=== PATIENT | female | born 1975 | race Caucasian/White ===

== ENCOUNTER 2019-10-13 15:36 | Outpatient (CLI) | payer BC, SELFPAY ==
[2019-10-13 16:27] LABS: Hematocrit 34.5 % (37.0-47.0); Hemoglobin 10.8 g/dL (12.0-15.0)
== END 2019-10-13 15:37 | disposition home or self-care (01) ==
LOC: ANHLAB 15:37
PROVIDERS: PCP Family Medicine; Visit Provider Anesthesiology
DX: N92.0 Excessive and frequent menstruation with regular cycle (principal)
CPT/HCPCS: 36415; 85014; 85018

== ENCOUNTER 2019-10-14 00:49 | Outpatient (CLI) | payer BC, SELFPAY ==
[2019-10-14 19:30] LABS: SARS-CoV-2 RNA PCR Negative
== END 2019-10-14 00:50 | disposition home or self-care (01) ==
LOC: ANHCOVIDDT 00:49
PROVIDERS: PCP Family Medicine; Visit Provider Obstetrics & Gynecology
DX: Z01.812 Encounter for preprocedural laboratory examination (principal); Z20.828 Contact with and (suspected) exposure to other viral communicable diseases
CPT/HCPCS: 87635; C9803; U0003

== ENCOUNTER 2019-10-16 01:46 | Day surgery (SDC) | payer BC, SELFPAY ==
[2019-10-12 15:36] VITALS: BMI 20.9
[2019-10-16 10:30] VITALS: BP 104/64; PULSE 74; RESP 16; TEMP 36.7; O2SAT 100
[2019-10-16] MEDS: ACETAMINOPHEN 500 MG TABLET 1000 MG PO (10:50)
[2019-10-16] MEDS: LACTATED RINGERS 1,000 ML 30 ML IV CONT ×2 (10:55→14:45)
--- NOTE | 2019-10-16 11:28 | WPDANESEPPF ---
Anes - Initial Pre Proc Eval Procedure: Operation Date: 10/16/19 12:30 Proposed Procedures p Hysteroscopy, Dilation And Curettage, Yvette Endometrial Ablation - Ramiro Bowser MD Date/Time: 10/16/19 11:28 Surgeon: Ramiro Bowser MD Pre Op Diagnosis: Menorrhagia Patient Data Age: 44 Gender: F Height: 1.6 m Weight: 52 kg Last Vital Signs Temp 36.7 C 10/16/19 10:30 Pulse 74 10/16/19 10:30 Resp 16 10/16/19 10:30 BP 104/64 10/16/19 10:30 Pulse Ox 100 10/16/19 10:30 Allergies Allergy/AdvReac Type Severity Reaction Status Date / Time Penicillins Allergy Hives Verified 10/16/19 11:02 Home Medications Medication Instructions Recorded Confirmed Type ferrous sulfate [iron] 325 mg PO DAILY PRN 10/12/19 10/16/19 History multivitamin 1 tablet PO DAILY 10/12/19 10/16/19 History Patient hx anesthesia problems: none Family hx anesthesia problems: none [facility] Past Medical History Medical History (Updated 10/16/19 @ 08:27 by Sam Polo DO) Anemia Anxiety IBS (irritable bowel syndrome) Migraine PONV (postoperative nausea and vomiting) Sjogrens syndrome Social History Social History Smoking status: Never smoker Spiritual care concerns: No Anes - Eval Final PreProcedure Day of Procedure 10/16/19 11:28 Patient weight: normal Heart: regular rate and rhythm Lungs: clear to auscultation and normal air movement Airway: Mallampati scale class 1 Neurological: alert and oriented Last oral intake: >/= 8 hours ASA classification: III Emergent: no Anesthetic plan: proceed Anesthesia type and monitoring: general GIVS and standard monitoring Informed Consent: The patient's anesthetic plan and its attendant risks and benefits were discussed with the patient/family/POA. Questions were solicited and answers provided to the satisfaction of the patient/family/POA.
--- NOTE | 2019-10-16 12:25 | WPDHPUPDATE1 ---
History and Physical Update Update Date/Time: 10/16/19 12:25 History and Physical has been reviewed, including an updated exam of the patient. There are NO changes in the patient's condition. Risks, benefits, and alternatives have been discussed and questions answered. Patient agrees to proceed with procedure.
--- NOTE | 2019-10-16 13:23 | PM.PROC ---
Procedure Note - Detailed Date of procedure: 10/16/19 Pre-op diagnosis: Menorrhagia Post-op diagnosis: same Procedure performed: Hysteroscopy D&C, endometrial ablation Description of procedure: The patient was taken the operating room. She has prepped and draped in the dorsal lithotomy position. Speculum was placed the vagina. The cervix grasped with a tenaculum. The cervix was injected at 3 and 9:00 a.m. with 1% lidocaine. The hysteroscope was inserted the intrauterine cavity through the cervix. The above findings were noted. The hysteroscope and uterine sound were used to calculate endometrial cavity length. The endometrial cavity length was entered into the device hand piece. The endometrial cavity was curettaged thoroughly with a medium-size curette. All surfaces were curettaged. The sample was sent to pathology. The device was placed in the intrauterine cavity and the array was expanded. The balloon cuff was inflated. The power and safety checks were initiated. Never completed the array was collapsed and the balloon cuff was collapsed. The device was withdrawn. The hysteroscope was inserted back into the intrauterine cavity and well desiccated endometrial cavity was observed. The speculum was removed. The tenaculum was removed. The patient tolerated procedure well. She is take covering stable condition. Anesthesia: MAC Surgeon: Ramiro Bowser MD Estimated blood loss (mL): 15 Drains: No Packing: No Pathology: yes Complications: No immediate complications Condition: stable Disposition: PACU Findings: Normal appearing vulva vagina and cervix., normal-appearing intrauterine cavity.
[2019-10-16 13:31] VITALS: BP 127/75; PULSE 80; RESP 16; TEMP 36.8; O2SAT 98
[2019-10-16] MEDS: ONDANSETRON INJ 4 MG/2 ML VIAL IV PUSH (13:51)
[2019-10-16 14:01] VITALS: BP 108/75; PULSE 78
[2019-10-16] MEDS: SCOPOLAMINE 1.5 MG PATCH TRANSDERM (14:19)
[2019-10-16] MEDS: KETOROLAC 15 MG/ML VIAL (*BKC) IV PUSH (14:19)
[2019-10-16 14:31] VITALS: BP 112/74; PULSE 64
[2019-10-16 15:01] VITALS: BP 109/69; PULSE 56
== END 2019-10-16 15:20 | disposition home or self-care (01) ==
PROVIDERS: PCP Family Medicine; Visit Provider Obstetrics & Gynecology
PROC: 0U5B8ZZ Destruction of Endometrium, Via Natural or Artificial Opening Endoscopic (ICD-10-PCS; CPT 58563; principal; 2019-10-16 12:30)
DX: N92.0 Excessive and frequent menstruation with regular cycle (principal); D64.9 Anemia, unspecified; Z79.899 Other long term (current) drug therapy; Z88.0 Allergy status to penicillin
CPT/HCPCS: 58563; A9270; J1885; J2250; J2405; J2704; J3010; J7030; J7120

== ENCOUNTER 2023-02-01 14:03 | Emergency (ER) | payer BC, SELFPAY ==
[2023-02-01 14:19] VITALS: BP 128/71; PULSE 80; RESP 16; TEMP 36.6; O2SAT 99
--- NOTE | 2023-02-01 14:38 | ED.GENADULT ---
HPI - General Adult General Chief complaint: Urogenital-Female Stated complaint: Uti symptoms Source: patient, RN notes reviewed and old records reviewed Mode of arrival: ambulatory Limitations: no limitations History of Present Illness HPI narrative: 47-year-old female presents to [facility] with complaints burning with urination that started 2-3 days ago. Patient denies frequency, urgency, abdominal pain, back pain. MD complaint: burning with u Onset (ago): day(s) (2-3) Related Data Allergies Allergy/AdvReac Type Severity Reaction Status Date / Time Penicillins Allergy Hives Verified 02/01/23 14:14 Review of Systems Constitutional: Constitutional: Reports no additional constitutional complaints Eyes: Eyes: Reports no additional eye complaints ENT: Reports system reviewed and no additional complaints, except as documented Cardiovascular: Cardiovascular: Reports no additional cardiovascular complaints Respiratory: Respiratory: Reports no additional respiratory complaints Gastrointestinal: Gastrointestinal: Reports no additional gastrointestinal complaints, Denies abdominal pain, Denies bloating, Denies diarrhea, Denies loose stools, Denies nausea and Denies vomiting Genitourinary: Genitourinary: Reports dysuria, Denies pelvic pain, Denies flank pain, Denies urinary incontinence, Denies urinary hesitancy, Denies urinary urgency and Denies vaginal discharge Neurologic: Reports system reviewed and no additional complaints, except as documented [facility] Past Medical History Medical History (Updated 02/01/23 @ 14:43 by Debbie Agrawal APRN) Anemia Anxiety IBS (irritable bowel syndrome) Migraine PONV (postoperative nausea and vomiting) Sjogrens syndrome Social History Social History Smoking status: Never smoker Spiritual care concerns: No Comments At the time of my signature, I reviewed and agree with the nursing past medical, surgical, social, and family history. There is no relevant family history pertinent to the patient complaint. Exam Const: General: cooperative, healthy appearing, no acute distress and well nourished Nutritional Appearance: well nourished Orientation/consciousness: patient oriented x3 Limitations: no limitations HENMT: Head: normal to inspection and normocephalic Ears: external ears normal, TM's normal bilaterally, mastoids normal and Abnormal EAC present Face/Nose/Sinus: normal facial exam Face and sinus: normal facial exam Mouth: Yes Normal oral and palatal mucosa present, Yes oropharynx normal and Yes moist mucous membranes Throat: posterior oropharynx normal, tonsils normal, uvula midline and no uvular edema Eyes: General: appearance normal, both eyes and all related structures Sclera: sclerae normal Pupils: Equal, round and reactive pupils present Resp: Effort & Inspection: normal respiratory effort, able to speak in complete sentences, no audible wheezes, no cough, no respiratory distress and no retractions Cardio: Rate: regular rate GI: Inspection: normal to inspection and non-distended GI Palp: No abdominal tenderness, Yes Soft to palpation, No Tenderness to palpation present (GI) and No Guarding due to palpation present (GI) : General: Yes no CVA tenderness Skin: General skin exam: normal color and no rashes or lesions noted Neuro: General: patient oriented x3 Cranial nerves: Yes Equal, round and reactive pupils present Psych: Appearance: grossly normal Course Course Emergency Course: Some parts of this dictation were generated by voice recognition software and may contain typographical and/or grammatical inaccuracies. Level of Care: Express Care Visit Vital Signs Vital signs: Vital Signs Temperature 98 F 02/01/23 14:19 Pulse Rate 80 02/01/23 14:19 Respiratory Rate 16 02/01/23 14:19 Blood Pressure 128/71 02/01/23 14:19 Pulse Oximetry 99 02/01/23 14:19 Oxygen Delivery Room Air 02/01/23 14:19 Temperature 98 F 02/01/23
== END 2023-02-01 14:50 | disposition home or self-care (01) ==
PROVIDERS: Emergency Provider Registered Nurse; PCP Family Medicine
DX: N30.01 Acute cystitis with hematuria (principal); M35.00 Sjogren syndrome, unspecified
CPT/HCPCS: 81003; 87086; 99213; G0463

== ENCOUNTER 2024-10-15 15:28 | Emergency (ER) | payer BC, SELFPAY ==
--- NOTE | ~2024-10-15 | CT_ITS ---
EXAMINATION: CT abdomen pelvis wo con DATE: 10/15/2024 17:15 INDICATION: Left upper quadrant pain TECHNIQUE: Computed tomography (CT) of the abdomen and pelvis was performed without intravenous contrast. The dose-length product was 186.66 mGy-cm. Automated exposure control and iterative reconstruction technique were employed. COMPARISON: None. FINDINGS: Lung bases unremarkable. Heart size normal. No significant pleural or pericardial effusion. The liver, spleen, pancreas, adrenal glands and kidneys are unremarkable. Gallbladder is present. Nonobstructive bowel gas pattern. No abnormal pelvic masses or fluid collections. No acute osseous abnormality. IMPRESSION: 1. No acute abdominal abnormality. Reviewed, dictated and finalized at location O.
--- OUTSIDE RECORDS SUMMARY | 2024-10-15 15:33 | XMS_ITS | Clinical Summary ---
Author Organization [facility] [address] Address [address] [place] [address] Phone Care Team Providers Care Sand Buffer Name Role Phone Kimberley Bullard MD Unavailable Tobias Nam DNP Primary Care Provider Unavailab le Allergies Active Allergy Reactions Criticality Noted Date Comments Penicillins Hives,Rash Reaction: Hives, , , Reaction: Rash, , Medications multivit-min/iron /folic acid/K (ADULTS MULTIVITAMIN ORAL) Take 1 tablet by mouth every morning Active albuterol HFA (Ventolin HFA) 90 mcg/actuation inhalerIndication s:SOB (shortness of breath) Inhale 2 puffs every 4 (four) hours as needed for wheezing or shortness of breath 8 g 5 1 Active diphenhydrAMINE (BENADRYL) 25 mg capsuleIndication s:Allergies Take 25 mg by mouth nightly Active ibuprofen (ADVIL,MOTRIN) 200 mg tab/capIndication s:Pain Take 3 tablet/capsule (600 mg total) by mouth every 6 (six) hours as needed for pain 30 tablet 1 1 Active acetaminophen (TYLENOL) 500 mg tablet Take 2 tablets (1,000 mg total) by mouth every 6 (six) hours as needed for pain 60 tablet 1 1 Active ALPRAZolam (XANAX) 0.25 mg tabletIndications :Anxiety about health Take 1 tablet (0.25 mg total) by mouth daily as needed for anxiety 30 tablet Active MAGNESIUM CHLORIDE ORAL Take by mouth Ac tive Active Problems Problem Noted Date Diagnosed Date PVC's (premature ventricular contractions) 02/02 NSVT (nonsustained ventricular tachycardia) 01/22 Urinary retention with incomplete bladder emptyi ng 12/02/2020 Abnormal uterine bleeding (AUB) 09/16/2020 Overview (09/16/2020): Added automatically from request for surgery [id number] Pelvic and perineal pain 09/16/2020 Overview (09/16/2020): Added automatically from request for surgery [id number] 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 Assessment & Plan (04/05/2017 10:20 AM RECEPTIONIST SECRETARY): Will repeat AVISE testing. Assessment & Plan (08/19/2016 4:26 PM CDT): See #1. Undifferentiated inflammatory arthritis 08/20/19 17 Assessment & Plan (10/18/2017 10:10 AM CDT): Patient disease activity is low. Patient is currently not on any medication. She denies any joint pain, swelling , rashes. She has felt much better since she has changed her diet. Will get AVISE testing today. She is to RTC in one year, sooner if worsening symptoms. Assessment & Plan (04/05/2017 10:19 AM RECEPTIONIST SECRETARY): Patient disease activity is low. Her u/s is actually improved from her previous one. Will continue to observe this patient at this time. She is feeling much better after changing her diet. Will repeat AVISE testing, she is going to stop by the [facility] soon. Assessment & Plan (11/20/2016 10:19 AM CDT): Positive ZORAIDA and SSA. Will repeat AVISE testing and U/S of the hand at the end of this year. Will have her come back for a f/u near the end of February. Patient is doing well with diet changes and does not want to go on any medication at this time. Assessment & Plan (08/19/2016 4:26 PM CDT): With positive ZORAIDA and SSA. Suspect undifferentiated connective tissue disease. Advised patient to start HCQ. Multiple joint pain 08/03/2016 Assessment & Plan (08/03/2016 1:53 PM CDT): With positive SSA and elevated sed rate. Suspect CTD, will evaluate for thyroidits as she has unexplained rashes. Patient will undergo further evaluation with labs, xrays and u/s. Will have patient return in two weeks to go over testing and discuss treatment plan at that time. Sjogren's syndrome 08/03/2016 Assessment & Plan (04/05/2017 10:20 AM RECEPTIONIST SECRETARY): Minimal complaints of dry eyes and dry mouth. Assessment & Plan (11/20/2016 10:21 AM CDT): See #1. Assessment & Plan (08/19/2016 4:23 PM CDT): Positive ZORAIDA and SSA. U/S with mild-moderate synovitis. No power doppler. Recommended patient to take HCQ. Discussed SE of this medication with the patient. She is going to go home and think about this medication and Se. Patient seen with Dr. Bullard. Assessment & Plan (08/03/2016 1:53 PM CDT): Positive SSA on initial workup through PMD. Hematuria 08/03/2016 Assessment & Plan (08/19/2016 4:27 PM CDT): Longstanding hx of hematuria. Assessment & Plan (08/03/2016 1:53 PM CDT): Chronic hx of hematuria with u/s and cytology every year. 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/27/2018 Connective tissue disorder 07/01/2016 0 05/27/2018 Influenza with respiratory m anifestation other than pneumonia 01/15/2014 05/27/2018 Overview (05/30/2016): Influenza with respiratory manifestation other than pneumonia Microscopic hematuria 11/10/20132018 Immunizations Immunization Administration Dates Next Due Influenza, Quadrivalent, Milagros l Culture-based MDCK, Preservative Free, Antibiotic Free, Intramuscular 12/14/2017 Influenza, Quadrivalent, Split, Intramuscular ,12/25/2016 Influenza, Quadrivalent, Spl it, Preservative Free, Intramuscular 12/30/2020,12/13/2013 Influenza, Unspecified 12/30/2020 Y[employer]ing SARS-CoV-2 Monovalent Vaccination (12+ Yrs) PURPLE 02/11/2021 Surgical History Surgery Date Site/Laterality Comments OTHER SURGICAL HISTORY 02/23/1992 - 02/21/1993 : OTHER SURGICAL HISTORY 02/22/2006 - 02/21/2007 : ABLATION 202 LAPAROSCOPIC TOTAL HYSTERECTOMY 10/23/2020 - 11/21/2020 with BS HYSTEROSCOPY 09/22/2020 - 10/22/2020 HYSTERECTOMY 02/23/2020 - 02/21/2021 Medical History Medical History Date Comments 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 prostate Heart attack Maternal Grandfather Jesse Cuco Diabetes Maternal Grandmother Augustina Cuco Diab etes mellitus; Other Mother Alive and well; Breast cancer Mother's Brother Cancer Paternal Grandfather Hosea Melara Sr. ALS Paternal Grandmother No Known Problems Son Anesthesia problems Neg Hx Relation Name Status Comments Brother 1 Alive Brother 2 Alive Brother 3 Alive Brother 4 Alive Daughter Alive Father Hosea Melara Jr. Maternal Grandfather Jesse [place] Maternal Grandmother Augustina Cuco Mother Alive Mother's Brother Paternal Grandfather Hosea Melara Sr. Paternal Grandmother Son Alive Social History Tobacco Use Types Packs/Day Years Used Date Smoking Tobacco: Never Smokeless Tobacco: Never Tobacco Cessation:Counseling Given: Not Answered Alcohol Use Standard Drinks/Week Comments No 0 (1 standard drink = 0.6 oz pur e alcohol) AUDIT-C Answer Date Recorded Q1: How often do you have a drink containing alc ohol? Monthly or less 12/06/2020 Q2: How many drinks containi ng alcohol do you have on a typical day when you are drinking? 1 or 2 12/06/2020 Q3: How often do you have si x or more drinks on one occasion? Never 12/06/2020 PHQ-2 Answer Date Recorded PHQ-2 Total Score (If total score is 3 or more points, staff should administer the PHQ-9) 0 04/14/2021 Comments No Sex and Gender Information Value Date Recorded Sex Assigned at Not on file Legal Sex Female 11:54 PM RECEPTIONIST SECRETARY Gender Identity Female 08/21/2020 8:43 PM CDT Sexual Orientation Straight 08/21/2020 8: 43 PM CDT Obstetrics History Para Term AB IAB SAB Ectopic Multiple Livin g Live Births 4 2 2 2 2 2 Date Outcome GA Total Labor Labor/2nd/3rd Weight Sex Type Anes PTL Bella A1 A5 Name Clin 1993 AB 1995 AB 2002 Term F Vag-S pont Living 2006 Term M Vag-S pont Living Last Filed Vital Signs Vital Sign Reading Time Taken Comments Blood Pressure 110/62 02/02/2022 3:49 PM RECEPTIONIST SECRETARY Pulse 47 02/02/2022 3:49 PM RECEPTIONIST SECRETARY Temperature 36.5 C (97.7 F) 07/23/2021 3:01 PM CDT Respiratory Rate 18 12/04/2020 9:00 AM CDT Oxygen Saturation 98% 02/02/2022 3:49 PM RECEPTIONIST SECRETARY Inhaled Oxygen Concentration - - Weight 57.2 kg (126 lb) 07/23/2021 3:01 PM CDT Height 160 cm (5' 2.99) 07/23/2021 3:01 PM CDT Body Mass Index 22.33 07/23/2021 3:01 PM CDT Plan of Treatment Health Maintenance Due Date Last Done Comments Colon Cancer Screening-Colonoscopy 1977 Hepatitis C Screening 1977 DTaP/Tdap/Td Vaccine (1 - Tdap) 02/16/1988 Hepatitis B Screening 1995 Regular Well Visit/Exam 18-64 1995 Depression Screening 04/14/2022 04/14/2021, 12/06/2020, 05/27/2018 Covid-19 Vaccine ( season) 2023 03/04/2021, 02/11/2021 Influenza Vaccine (#1) 2024 , 12/30/2020, 12/21/2017, Additional history exists Breast Cancer Screening-Mammogram 02/10/2025 02/11/2024, 08/20/2022, 01/09/2021, Additional history exists Pneumococcal vaccine <65 Aged Out No longer eligible based on patient's age to complete this topic Procedures Procedure Name Priority Date/Time Associated Diagnosis Comments SCREENING MAMMOGRAM BILATERAL W CAITLYN Schedule Routine, Read Routine (OP Routine) 02/11/2024 3:30 PM RECEPTIONIST SECRETARY Screening mammogram, encounter for from Last 3 Months or Most Recently Relevant to Health Maintenance Results * Screening Mammogram Bilateral W Caitlyn (02/11/2024 3:30 PM RECEPTIONIST SECRETARY) Anatomical Region Laterality Modality Breast Bilateral Mammography Impressions 02/11/2024 3:44 PM RECEPTIONIST SECRETARY BI-RADS ATLAS category (overall): 1 - Negative There is no mammographic evidence of malignancy. A 1 year screening mammogram is recommended. The patient has been or will be contacted. We recommend annual screening mammography for women at average risk of breast cancer beginning at age 40, based on guidelines of the [employer] (ACR Practice Parameter for the Performance of Screening and Diagnostic Mammography) and [employer]. For women with and elevated risk of breast cancer, please refer to the ACR Practice Parameter for specific screening recommendations. The patient will be entered into a reminder system with a target due date of 1 year for her next screening exam. Narrative 02/11/2024 3:44 PM RECEPTIONIST SECRETARY Screening Mammogram Bilateral W Caitlyn: 02/11/24 The study was acquired using full field digital technology and interpreted from soft copy. 2D digital mammographic views, as well as 3D digital tomosynthesis were performed in the CC and MLO projections. CLINICAL: Screening mammogram, encounter for No relevant medical history has been documented for this patient. History of breast cancer in Mother's Brother. COMPARISONS: 08/20/2022 Screening Mammogram Bilateral W Caitlyn 01/09/2021 Screening Mammogram Bilateral W Caitlyn 12/08/2019 Screening Mammogram Bilateral W Caitlyn 11/18/2018 Screening Mammogram Bilateral W Caitlyn 08/24/2017 Diagnostic Mammogram Left W Caitlyn 08/18/2017 Screening Mammogram 2D Bilateral BREAST TISSUE: The breasts are extremely dense, which lowers the sensitivity of mammography. FINDINGS: There is no new suspicious finding in either breast on mammogram. us Self Screening Mammogram IMG MAMMO PROCEDURES Fi nal Result from Last 3 Months or Most Recently Relevant to Health Maintenance Insurance [employer] ACCESS CHOICE [facility] Address: [facility] [id number] [place] [address] ANTHEM ACCESS CHOICE ANTHEM ACCESS CHOICE ANTHEM ACCESS CHOICE Advance Directives For more information, please contact: [phone] * Full Code (Latest Code Status on File) Date Activated Date Inactivated Comments 12/02/2020 11:32 PM 12/04/2020 6:05 PM Care Teams Sand Buffer Relationship Specialty Start Date End Date Tobias Nam DNP PCP - General 12/25/23 [place] [id number] [facility] [address] [place] [address] Rheumatology 11/24/16
[2024-10-15 16:00] VITALS: BP 124/86; PULSE 77; RESP 20; TEMP 36.5; O2SAT 97
--- NOTE | 2024-10-15 16:00 | ED_ITS ---
HPI - Abdominal Pain General Chief Complaint: Abdominal Pain Stated Complaint: left side abdominal pain Time Seen by Provider: 10/15/24 16:00 Source: patient Mode of arrival: ambulatory Limitations: no limitations History of Present Illness HPI narrative: Patient is a 49-year-old female with a left lower ribcage pain laterally. No definite injury but patient is prone to events. No nausea vomiting or diarrhea. No chest pain or shortness of breath. MD elicited complaint: other ( Left lower thorax at the lower ribs cause pain and point tenderness today) Pertinent past history: none Onset (ago): day(s) ( 1) Pain Consistency: constant Location: chest ( left lower thorax mid axillary line) Severity: mild Pain scale (0-10): 3 Quality: aching Radiation: none Migration to: no migration Exacerbating factors: movement and other ( palpation) Relieving factors: rest Context: confirms other ( patient having left lower thorax mid axillary line pain to palpation and breathing /coughing) Associated symptoms: denies other symptoms Treatments prior to arrival: NSAIDs Related Data Patient : No Allergies Allergy/AdvReac Type Severity Reaction Status Date / Time Penicillins Allergy Hives Verified 10/15/24 16:31 Review of Systems 2 Review of Systems: All systems reviewed & are unremarkable except as noted in HPI and below Constitutional: Constitutional: Reports no additional constitutional complaints Eyes: Eyes: Reports no additional eye complaints ENT: Reports system reviewed and no additional complaints, except as documented Cardiovascular: Cardiovascular: Reports no additional cardiovascular complaints Respiratory: Respiratory: Reports no additional respiratory complaints Gastrointestinal: Gastrointestinal: Reports no additional gastrointestinal complaints Genitourinary: Genitourinary: Reports no additional female genitourinary complaints Musculoskeletal: Musculoskeletal: Reports no additional musculoskeletal complaints Integumentary/Breasts: Skin/Breast: Reports system reviewed and no additional complaints, except as docu Neurologic: Reports system reviewed and no additional complaints, except as documented Psychiatric: Psychiatric: Reports no additional psychiatric complaints Endocrine: Endocrine: Reports no additional endocrine complaints Hematologic/Lymphatic: Hematologic/Lymphatic: Reports no additional hematologic/lymphatic complaints Allergic/Immunologic: Allergic/Immunologic: Reports no additional allergic/immunologic complaints PMFSH Past Medical History Medical History PONV (postoperative nausea and vomiting) Anxiety Sjogrens syndrome Anemia IBS (irritable bowel syndrome) Migraine Social History Social History Smoking status: Never smoker Spiritual care concerns: No Exam 2 Const: General: healthy appearing and no acute distress Nutritional Appearance: well nourished Orientation/consciousness: patient oriented x3 HENMT: Head: normal to inspection Ears: external ears normal F bipin/Nose/Sinus: Normal external nose present Eyes: Conjunctivae: conjunctivae normal Pupils: Equal, round and reactive pupils present EOM: EOMs intact bilaterally Neck: Neck: normal visual inspection Chest: Chest palpation & inspection: normal inspection of the chest Resp: Effort & Inspection: normal respiratory effort and not labored A uscultation: clear to auscultation bilaterally and no crackles Cardio: Rate: regular rate Rhythm: regular rhythm Heart sounds: no murmurs GI: Inspection: non-distended GI Palp: Yes Soft to palpation, No Tenderness to palpation present (GI) and Yes Guarding due to palpation present (GI) A uscultation: normal bowel sounds : General: Yes bladder normal to palpation Back/Spine/Pelvis: Back: No no CVA tenderness and CVA tenderness ( left lower thorax at the lowest ribs mid axillary line) Skin: General skin exam: normal color Rashes: no rashes Wounds: no wounds Neuro: General: patient oriented x3, moves all extremities and no meningeal signs Cranial nerves: Yes Nystagmus not present Speech: normal speech Extrem: General: normal to inspection Psych: Mental Status: mental status grossly normal Affect: normal affect Attitude: cooperative Course Vital Signs Vital signs: Vital Signs Temperature 36.5 C 10/15/24 16:00 Pulse Rate 77 10/15/24 16:00 Respiratory Rate 20 10/15/24 16:00 Blood Pressure 124/86 10/15/24 16:00 Pulse Oximetry 97 10/15/24 16:00 Oxygen Delivery Room Air 10/15/24 16:00 Temperature 36.5 C 10/15/24 16:00 Pulse Rate 78 10/15/24 16:55 Respiratory Rate 18 10/15/24 16:55 Blood Pressure 116/70 10/15/24 16:55 Pulse Oximetry 97 10/15/24 16:55 Oxygen Delivery Room Air 10/15/24 16:55 MDM - Abdominal Pain MDM Narrative Medical decision making narrative: patient is a 49-year-old female with left thorax mid axillary line pain. No injury. Patient has chronic blood in her urine for many years. Labs. CT scan. UA. Lab Data Attestation: I reviewed the patient's lab results. 10/15/24 17:01 10/15/24 17:01 Labs: Lab Results 10/15/24 10/15/24 Range/Units 15:56 17:01 WBC 9.7 (4.8-10.8) K/mm3 RBC 4.72 (4.20-5.40) M/mm3 Hgb 14.2 (12.0-15.0) g/dL Hct 42.8 (35.0-49.0) % MCV 90.7 (78.0-102.0) fL MCH 30.1 (27.0-31.0) pg MCHC 33.2 (32-36) g/dL RDW 12.4 (11.6-14.4) % Plt Count 293 (150-420) K/mm3 MPV 9.3 (9.2-11.8) fl Immature Gran % (Auto) 0.3 H (0.0-0.0) % Neut % (Auto) 78.1 H (50.0-70.0) % Lymph % (Auto) 16.7 L (18.0-42.0) % [place] % (Auto) 4.2 (2.0-11.0) % Eos % (Auto) 0.4 L (1.0-6.0) % Baso % (Auto) 0.3 (0.0-1.0) % Lymph # (Auto) 1.63 (1.10-4.50) K/mm3 [place] # (Auto) 0.41 (0.10-0.90) K/mm3 Eos # (Auto) 0.04 (0.02-0.50) K/mm3 Baso # (Auto) 0.03 (0.00-0.10) K/mm3 Abs Immat Gran (auto) 0.03 H (0.00-0.00) K/mm3 Absolute Neuts (auto) 7.60 H (1.70-7.20) K/mm3 Absolute Nucleated RBC 0.00 (0.00-0.00) K/mm3 Nucleated RBC % 0.0 (0-0.0) % PT 10.3 (9.50-12.1) Seconds INR 0.9 APTT 28.3 (23.9-30.70) Sec Sodium 140 (137-145) mmol/L Potassium 4.0 (3.4-5.0) mmol/L Chloride 104 (98-107) mmol/L Carbon Dioxide 27 (22-30) mmol/L Anion Gap 9 (4-12) mmol/L BUN 10 (7-17) mg/dL Creatinine 0.93 (0.7-1.0) mg/dL Estim Creat Clear Calc 55 ml/min Estimated GFR > 60 (59 - ) Glucose 104 (65-110) mg/dL Calculated Osmolality 289 (285-295) mOsm/kg Calcium 9.7 (8.4-10.2) mg/dL Total Bilirubin 0.6 (0.2-1.3) mg/dL AST 23 (14-36) U/L ALT 13 (6-35) U/L Alkaline Phosphatase 58 (38-126) U/L Total Protein 7.5 (6.3-8.2) g/dL Albumin 4.6 (3.5-5.1) g/dL Urine Color Light yellow (Yellow) Urine Appearance Clear (Clear) Urine pH 6.0 (5.0-8.0) Ur Specific [place] 1.020 (1.010-1.020) Urine Protein Negative (Negative) Urine Glucose (UA) Negative (Negative) Urine Ketones 1+ H (Negative) Ur Blood (Man) 2+ H (Negative) Urine Nitrate Negative (Negative) Urine Bilirubin Negative (Negative) Urine Urobilinogen 0.2 (0.2-1.0) mg/dL Leukocyte Esterase Rfl Negative (Negative) TAMANNA/UL Urine RBC 11-20 H (0-2) /hpf Urine WBC None seen (0-3) /hpf Ur Squamous Epith Cells Moderate H (Few) /hpf Urine Bacteria 1+ H (None) /hpf Imaging Data Attestation: I personally reviewed and interpreted this imaging study as follows: Radiologist's impression: ITS Impressions Abdomen/Pelvis CT 10/15/24 17:31 IMPRESSION: 1. No acute abdominal abnormality. Discharge Plan Discharge Clinical Impression: Contusion of left chest wall Qualifiers: Encounter type: initial encounter Qualified Code(s): S20.212A - Contusion of left front wall of thorax, initial encounter Patient Disposition: Home Condition: Stable Instructions: Chest Contusion (ED) Additional Instructions: please follow-up with primary doctor in the next week. Come back to the ER for any worsening symptoms. Please use ibuprofen 600 mg every 8 hours as needed or Tylenol 500-1000 mg every 8 hours as needed. Patient Language: Tajik Prescriptions: No Action azithromycin 250 mg tablet See Rx Instructions PO .COMPLEX Qty: 6 0RF Rx Instructions: For 250 mg dose pack: take 500 mg today (day 1), then 250 mg for 4 days (days 2-5) PO Follow-up/Referrals: Tobias Nam APRN [Primary Care Provider, [facility]] Time of Disposition: 18:20
--- OUTSIDE RECORDS SUMMARY | 2024-10-15 16:22 | XMS_ITS | Clinical Summary ---
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 Assessment & Plan (04/05/2017 10:20 AM [employer]): Will repeat AVISE testing. Assessment & Plan [...] symptoms. Assessment & Plan (04/05/2017 10:19 AM [employer]): Patient disease activity is low. Her u/s is actually improved from her previous one. Will continue to observe this patient at this time. She is feeling much better after changing her diet. Will repeat AVISE testing, she is going to stop by the [facility] soon. Assessment & Plan (11/20/2016 10:19 AM [...] 08/03/2016 Assessment & Plan (04/05/2017 10:20 AM [employer]): Minimal complaints of dry eyes and dry [...] Preservative Free, Intramuscular 12/30/2020,12/13/2013 Influenza, Unspecified 12/30/2020 [employer] SARS-CoV-2 Monovalent Vaccination (12+ Yrs) PURPLE 02/11/2021 Surgical History Surgery Date Site/Laterality Comments OTHER SURGICAL HISTORY 02/23/1992 - 02/21/1993 : OTHER SURGICAL HISTORY 02/22/2006 - 02/21/2007 : ABLATION 202 LAPAROSCOPIC TOTAL HYSTERECTOMY 10/23/2020 - 11/21/2020 with BS HYSTEROSCOPY 09/22/2020 - 10/22/2020 HYSTERECTOMY 02/23/2020 - 02/21/2021 Medical History Medical History Date Comments 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 Hx Other Medical 1992 ; Outc ome: [...] on file Legal Sex Female 11:54 PM [employer] Gender Identity Female 08/21/2020 8:43 PM CDT [...] Comments Blood Pressure 110/62 02/02/2022 3:49 PM [employer] Pulse 47 02/02/2022 3:49 PM [employer] Temperature 36.5 C (97.7 F) 07/23/2021 3:01 PM CDT Respiratory Rate 18 12/04/2020 9:00 AM CDT Oxygen Saturation 98% 02/02/2022 3:49 PM [employer] Inhaled Oxygen Concentration - - Weight 57.2 [...] Read Routine (OP Routine) 02/11/2024 3:30 PM [employer] Screening mammogram, encounter for from Last 3 Months or Most Recently Relevant to Health Maintenance Results * Screening Mammogram Bilateral W Caitlyn (02/11/2024 3:30 PM [employer]) Anatomical Region Laterality Modality Breast Bilateral Mammography Impressions 02/11/2024 3:44 PM [employer] BI-RADS ATLAS category (overall): 1 - Negative There is no mammographic evidence of malignancy. A 1 year screening mammogram is recommended. The patient has been or will be contacted. We recommend annual screening mammography for women at average risk of breast cancer beginning at age 40, based on guidelines of the [employer] [employer] (ACR Practice Parameter for the Performance of Screening and Diagnostic Mammography) and [employer] [employer]. For women with and elevated risk of breast cancer, please refer to the ACR Practice Parameter for specific screening recommendations. The patient will be entered into a reminder system with a target due date of 1 year for her next screening exam. Narrative 02/11/2024 3:44 PM [employer] Screening Mammogram Bilateral W Caitlyn: 02/11/24 The [...] Most Recently Relevant to Health Maintenance Insurance [employer] ACCESS CHOICE ANTHEM ACCESS CHOICE ANTHEM ACCESS CHOICE ANTHEM ACCESS CHOICE Advance Directives For more information, please contact: [phone] * Full Code (Latest Code Status on File) Date Activated Date Inactivated Comments 12/02/2020 11:32 PM 12/04/2020 6:05 PM Care Teams [employer] Relationship Specialty Start Date End Date Tobias Nam DNP PCP - General 12/25/23 [place] [id number] [facility] [address] [place] [address] Rheumatology 11/24/16
[2024-10-15 16:37] LABS: Add Urine Microscopic? YES; Appearance Urine Clear (Clear); Glucose Urine UA Negative (Negative); Leukocyte Esterase Ur Negative LEU/UL (Negative); Nitrate Urine Negative (Negative); Specific Grav Ur 1.020 (1.010-1.020)
[2024-10-15 16:55] VITALS: BP 116/70; PULSE 78; RESP 18; O2SAT 97
[2024-10-15 17:04] LABS: Hematocrit 42.8 % (35.0-49.0); Hemoglobin 14.2 g/dL (12.0-15.0); Immature Granulocyte Percent A 0.3 % (0.0-0.0); Lymphocytes Absolute Auto 1.63 K/mm3 (1.10-4.50); Mean Corpuscular HGB Conc 33.2 g/dL (32-36); Mean Corpuscular Hemoglobin 30.1 pg (27.0-31.0); Mean Corpuscular Volume 90.7 fL (78.0-102.0); Nucleated Red Blood Cells Absolute Auto 0.00 K/mm3 (0.00-0.00); Nucleated Red Blood Cells Perc 0.0 % (0-0.0); Platelet Count Result 293 K/mm3 (150-420); Red Blood Count 4.72 M/mm3 (4.20-5.40); White Blood Count 9.7 K/mm3 (4.8-10.8)
[2024-10-15 17:16] LABS: Alanine Aminotransferase 13 U/L (6-35); Albumin Level 4.6 g/dL (3.5-5.1); Alkaline Phosphatase 58 U/L (38-126); Anion Gap 9 mmol/L (4-12); Aspartate Amino Transferase 23 U/L (14-36); Bilirubin,Total 0.6 mg/dL (0.2-1.3); Blood Urea Nitrogen 10 mg/dL (7-17); Calcium 9.7 mg/dL (8.4-10.2); Carbon Dioxide 27 mmol/L (22-30); Chloride 104 mmol/L (98-107); Estimated CRCL calculation 55 ml/min; Estimated Glomerular Filt Rate > 60; Glucose 104 mg/dL (65-110); Osmolality Calculated 289 mOsm/kg (285-295); Potassium 4.0 mmol/L (3.4-5.0); Sodium 140 mmol/L (137-145); Total Protein 7.5 g/dL (6.3-8.2)
[2024-10-15 17:19] LABS: INR 0.9; Partial Thromboplastin Time 28.3 Sec (23.9-30.70); Prothrombin Time 10.3 Seconds (9.50-12.1)
[2024-10-15 18:30] VITALS: BP 114/78; PULSE 76; RESP 20; TEMP 36.6; O2SAT 99
== END 2024-10-15 18:34 | disposition home or self-care (01) ==
PROVIDERS: Emergency Provider Emergency Medicine; PCP Student in an Organized Health Care Education/Training Program
DX: S20.212A Contusion of left front wall of thorax, initial encounter (principal); X58.XXXA Exposure to other specified factors, initial encounter
CPT/HCPCS: 36415; 74176; 80053; 81001; 85025; 85610; 85730; 99284

== ENCOUNTER 2025-02-09 08:57 | Outpatient (CLI) | payer BC, SELFPAY ==
--- OUTSIDE RECORDS SUMMARY | 2025-02-09 09:10 | XMS_ITS | Data Portability ---
Author Organization [facility] [place] Address [address] [place] [address] [place] [address] Assessment No assessment recorded. Plan of Treatment Reminders Order Date Submit Date Provider Last Modified By Organization Details Last Modified Time Details Appointments None recorded. Lab None recorded. Referral None recorded. Procedures None recorded. Surgeries None recorded. Imaging US, pelvis 2019 020 [email or web address] [place], [address], [address], [place], [address], 0 09:45:31 US, transvagina l 2019 020 SONNY [place], [address], [address], [place], [address], 1 12:49:57 US, pelvis, complete 2019 020 SONNY Bowser MD, [address], [place], [address], 1 05:00:49 Medication Orders None recorded. Patient TargetsNo targets recorded. Patient InstructionsNo instructions recorded. Reason for Referral None Reported. Results Created Date Observation Date Name Description Value Unit Range Abnormal Flag Note LastModifiedBy Organization Detail LastModifiedTime 04/11/1904/11/2020 issa GILLILAND md interpretati on Not Available Tiffanie dee [address], [place], [address], 10/04/2019 16:28:29 04/12/19 21 04/12/2020 , issa alvarenga md interpretati on Not Available [facility] [address], [place], [address], 01/26/2020 16:43:39 10/04/19 issa GILLILAND No observ ation record ed. layran Niesha [address], [place], [address], 10/09/2019 14:56:23 12/08/1912/08/2019 MAMMO , scree derrick, bilat eral No observ ation record ed. layran Not Available 2019 15:21:11 01/26/20 , issa alvarenga No observ ation record ed. layran Niesha [address], [place], [address], 02/06/2020 11:38:18 Result Notes None recorded. 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;R ecorded Elsewhere : No Locati on: [facility] So urce: EHR Chron ic: N Practic e ID: 0001 Bill able Time: 09:00:00 AM Not Available [facility] 0 17:42:49 Screening for malignant neoplasm of cervix Active 2015 Encounter for screening for malignant neoplasm of cervix;Re corded Elsewhere : No Locati on: [facility] So urce: EHR Chron ic: N Practic e ID: 0001 Bill able Time: 09:00:00 AM Not Available [facility] 0 17:42:[address] Concept Active 2015 Encntr for general adult medical exam w/o abnormal findings; Recorded Elsewhere : No Locati on: [facility] So urce: EHR Chron ic: N Practic e ID: 0001 Bill able Time: 09:00:00 AM Not Available [facility] 0 17:42:49 Swelling / lump finding Active 2017 Localized swelling, mass and lump, unspecifi ed;Record ed Elsewhere : No Locati on: [facility] So urce: EHR Chron ic: N Practic e ID: 0001 Bill able Time: 10:15:00 AM Not Available [facility] 0 17:42:50 Screening for malignant neoplasm of rectum Active 2017 Encounter for screening for malignant neoplasm of rectum;Re corded Elsewhere : No Locati on: [facility] So urce: EHR Chron ic: N Practic e ID: 0001 Bill able Time: 10:15:00 AM Not Available [facility] 0 17:42:50 Evaluatio n finding Active 2017 Oth abn and inconclus curly findings on dx imaging of breast;Re corded Elsewhere : No Locati on: [facility] So urce: EHR Chron ic: N Practic e ID: 0001 Bill able Time: 10:00:00 AM Not Available [facility] 0 17:42:50 Neoplasm of uterine cervix Active 2017 Mild cervical dysplasia ;Recorded Elsewhere : No Locati on: [facility] So urce: EHR Chron ic: N Practic e ID: 0001 Bill able Time: 10:00:00 AM Not Available [facility] 0 17:42:50 test negative [id number] Active 2017 Encounter for test, result negative; Recorded Elsewhere : No Locati on: [facility] So urce: EHR Chron ic: N Practic e ID: 0001 Bill able Time: 10:00:00 AM Not Available [facility] 0 17:42:50 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 [id number] 952927 Active 2017 Cervical low risk HPV DNA test positive; Recorded Elsewhere : No Locati on: [facility] So urce: EHR Chron ic: N Practic e ID: 0001 Bill able Time: 01:30:00 PM Not Available [facility] 0 17:42:50 Atypical squamous cells of undetermi todd significa nce on cervical Papanicol aou smear 978245557 Active 2018 Atyp squam cell of undet signfc cyto smr crvx (ASC-US); Recorded Elsewhere : No Locati on: [facility] So urce: EHR Chron ic: N Practic e ID: 0001 Bill able Time: 09:00:00 AM Not Available [facility] 0 17:42:50 Problem Notes None recorded. Procedures Surgical History Date Name Laterality Status Provider Name and Address Organization Details Recorded Time 0 HYSTEROSCOPY, WITH ENDOMETRIAL ABLATION (SURG) completed Thania Markos [facility] 07/04/2020 16:18:36 Imaging Results None recorded. Procedure Notes None recorded. Medical Equipment None Reported. Allergies Allergen ID Allergen Name Allergen Category Reaction Reaction Severity Criticality Documentation Date Start Date Code Code System Note Provider Name and Address Organization Details Recorded Time 1406 Product containin g penicilli n (product) medicatio n Not available Not available Not available 09/13/2019 08166 8001 SNOMED [facility] 0 10:59:51 Medications Name Sig Start Date Stop Date Status Note LastModified by Organization Details LastModified Time hydrocodo ne 5 mg-acetam inophen 325 mg tablet TAKE 1 TABLET BY MOUTH EVERY 6 HOURS active Not Available Not Available No t Available Diflucan 150 mg tablet take 1 tablet by oral route once 08/13 completed Prescrib ed Elsewher e: No Locat ion: [facility] odify By: aviva boyduntfabian DateTime : 08/05/19 18 01:53:19 PM Not Available Not Available Not Available Metrogel Vaginal 0.75 % (37.5 mg/5 gram) insert 1 applicat orful by vaginal route every day at bedtime 08/13 completed Prescrib ed Elsewher e: No Locat ion: [facility] odify By: aviva boyduntfabian DateTime : 07/29/19 18 09:56:49 AM Not Available Not Available Not Available iron 325 mg (65 mg iron) tablet take 1 tablet by oral route every day 2017 active Prescrib ed Elsewher e: Yes Loca tion: [facility] M odify By: aviva boydunter DateTime : 08/14/19 18 10:00:00 AM Not Available Not Available Not Available iron active Not Available Not Availa ble Not Available Lo Loestrin Fe 1 mg-10 mcg (24)/10 mcg (2) tablet take 1 tablet by oral route every day 05/28 completed Prescrib jeffery Mcdonald e: No [facility] By: amkhelen boyduntfabian DateTime : 05/14/19 16 09:00:00 AM Not Available Not Available Not Available Vitals Date Recorded Body height Body mass index (BMI) Body weight Systolic And Diastolic Provider Name and Address Organization Details Last Updated DateTime 10/27/2019 154.94 cm 21.9 kg/m2 59995.71 g 105/67 mm[Hg] [facility] 10/27/2019 14:21:25 Date Recorded Body height Body mass index (BMI) Body weight Systolic And Diastolic Provider Name and Address Organization Details Last Updated DateTime 01/22/2020 154.94 cm 22.3 kg/m2 56040.9 g 123/50 mm[Hg] [facility] 01/22/2020 10:39:42 Date Recorded Body height Body mass index (BMI) Body weight Systolic And Diastolic Provider Name and Address Organization Details Last Updated DateTime 02/03/2020 154.94 cm 22.1 kg/m2 91029.31 g 100/67 mm[Hg] [facility] 02/03/2020 11:59:24 Social History None recorded. Functional Status None recorded. Mental Status None recorded. Family History Relationship Description Onset Age of this Age Resolved Age Notes LastModified by Organization Details LastModified Time Maternal Grandmother Diabetes mellitus [email or web address] Not available 2019 14:58:42 Maternal Grandmother Diabetes mellitus [email or web address] Not available 2019 14:58:42 Maternal Grandfather Heart disease [email or web address] Not available 2019 14:58:42 Maternal Grandfather Heart disease [email or web address] Not available 2019 14:58:42 Notes:Maternal grandfather: Heart disease Maternal grandmother: Diabetes mellitus Medical History Condition Response Other Y Gynecological History Statement/Question Response Current Control Method None Date of LMP 08/25/2019 Obstetrics History GPAL:G 0 P 0 0 0 0 Past Encounters Encounter ID Performer Location Encounter Start Date Encounter Closed Date Diagnosis/Indication Diagnosis SNOMED-CT Code Diagnosis ICD10 Code Diagnosis IMO Codes Diagnosis Note [id number] Peewee Bowser MD [facility] [address] [address] 09/13/2019 16:14:58 09/13/2019 17:39:13 Menorrhagia 751724179 N92.0 Dysmenorrhea 255584400 N 94.6 Severe menorrhgia and dysmenorrh ea. Patient has severe debilitati ng dysmenorrh ea and menorrhagi a. She has accidents during her periods. She gets blood on her bedding and clothing. She has to plan work and personal life around her menses. She is in severe pain and is nonfunctio nal 1 to 2 days of her cycle. We spent 15 minutes discussing evaluation treatment options. We agreed to move forward with evaluation and to consider endometria l ablation. Gynecologi c examination [id number] Z01.419 This patient is here for her annual exam. A thorough history was taken. A physical exam was performed. Age appropriat e routine health screening was ordered, performed, and discussed. Recommende d testing was ordered. She was asked to follow up in one year. She will be informed of any test results. Mammogram - [ordered] Colonoscop y -N/A Bone Density -N/A Cholestero l -none Pap - today [id number] Peewee Bowser MD [place] [address] [address] 10/04/2019 15:35:32 10/05/2019 12:28:12 Menorrhagia 576400175 N92.0 This patient is a 44-year-ol d female presents for follow-up on ultrasound and severe menorrhagi a. Patient night spent more than 25 minutes is discussing aspects of her medical condition. More than 50% of that was counseling . We reviewed her ultrasound images. We talked about her symptoms and how they relate to the findings. She has a large 4 cm fibroid that is in the fundal myometrium . Is unclear whether this impinges on the endometria l cavity. We were seriously considerin g endometria l ablation. I indicated the patient cannot tell her how this might affect her endometria l ablation if it was completed, and ifthe endometria l some to be done effectivel y. I feel it is likely that it can be. Based on the ultrasound pictures the endometria l cavity does not appear distorted. We talked about all medical surgical options for her situation. She is debilitati ng menstrual flow that affects her quality of life and activities of daily living, affecting her work. We agreed to proceed with endometria l ablation at the hospital. She has a problem with nausea and pain. Pain produces significan t nausea vomiting in this patient immediatel y. Uterine leiomyoma 748916 05 D25.9 [id number] Peewee Bowser MD [place] [address],[place] [address] 10/04/2019 15:35:52 10/04/2019 16:31:11 Dysmenorrhea 368832250 N94.6 N92.0 Severe menorrhgia and dysmenorrh ea. Patient has severe debilitati ng dysmenorrh ea and menorrhagi a. She has accidents during her periods. She gets blood on her bedding and clothing. She has to plan work and personal life around her menses. She is in severe pain and is nonfunctio nal 1 to 2 days of her cycle. We spent 15 minutes discussing evaluation treatment options. We agreed to move forward with evaluation and to consider endometria l ablation. [id number] Peewee Bowser MD [place] [address],[place] [address] 10/24/2019 14:48:24 10/24/2019 14:49:49 [id number] Peewee Bowser MD [place] [address],[facility] [address] 10/27/2019 14:00:12 10/27/2019 14:58:27 Postoperative care [id number] Z48.89 this patient is a 44-year-ol d female presents forpostopf ollow-up. She had a endometria l ablation. The procedure was uncomplica dean pre she has had bleeding for the past 4-5 days. It is red and sometimes watery vaginal bleeding. We agreed to observe. Shedenies any nausea, vomiting, fever, chills. She denies any foul-smell ing vaginal discharge. She will contact us if her symptoms persist. [id number] Peewee Bowser MD [place] [address],[facility] [address] 01/22/2020 10:27:34 01/22/2020 11:03:09 Dysmenorrhea 753450533 N94.6 N92.0 This patient has severe dysmenorrh ea, status post ablation has a fibroid uterus. We will obtain pelvic ultrasound . We will consider treatment options. She is very tender on exam and reports profoundly severe pain. This pain affects her quality of life and activities of daily living. She can not work while she is having this pain. There is risk to driving. [id number] Peewee Bowser MD [place] [address],[facility] [address] 01/26/2020 16:21:36 01/26/2020 17:12:35 Pain in pelvis 22443380 R10.2 [id number] Peewee Bowser MD [place] [address] [address] 02/03/2020 11:33:32 02/03/2020 12:28:10 Dysmenorrhea 740981336 N94.6 N92.0 This patient presents for follow-up after evaluation for dysmenorrh ea. She had endometria l ablation about 3 months ago. Her bleeding is much improved, but she has pain that is significan t on the 1st day of her. She rates about an 8. It is a cramping pain. It is confined to the mid pelvis and she rates it an 8/10. We agreed to perform a pelvic ultrasound . The pelvic ultrasound is consistent with the normal post ablation pelvic ultrasound with a small fibroid. We spent 15 minutes face-to-fa ce. I shared ultrasound images with her. We talked about medical management of her pain at the time of her menses. She will follow up as needed. She will manage the pain with NSAIDs. Health Concerns Section Related Observation LastModified by Organization Detai ls LastModified Time None Recorded Concern Status LastModified by Organization Details LastModified Time None Recorded Advance Directives Directive None Recorded Payers Insurance Date Sequence Insurance Name Policy Number Policy Delatorre Covered Member ID Delatorre Member ID Guarantor Name 02/05/[address] [facility] [id number] [place] [id number] 02 [place] Notes Date Note Type Note Provider Name and Address Organization Details Recorded Time 10/27/2019 text/html this patient is a 44-year-old female presents for postop follow-up. She had a endometrial ablation. The procedure was uncomplicated pre she has had bleeding for the past 4-5 days. It is red and sometimes watery vaginal bleeding. We agreed to observe. She denies any nausea, vomiting, fever, chills. She denies any foul-smelling vaginal discharge. She will contact us if her symptoms persist. Peewee Bowser MD [address], [place], [address], [facility] 10/27/2019 14:57:51 01/22/2020 text/html Beer-Pelvic PainReported by PatientHPIFor location, patient reportsmid pelvis. For onset/timing, patient reports3-6 months. For duration, patient reportsintermittent . For quality, patient reportscrampingandp ressure. For severity, patient reportssevereandpai n level 10/10. For context, patient reportsoccurs in a cyclical pattern. For associated symptoms, patient reportsno back pain. patient is a a 44-year-old female who presents for severe pelvic pain. She has severe dysmenorrhea and pelvic cramping and pressure. Patient is about 4 months postop from an ablation. She had a 4 cm fibroid on a previous ultrasound. Her bleeding is improved since the ablation but her pain is become worse. And recently has become debilitating and severe. It radiates to her belly button. It is in the mid pelvis. Nothing is palliative. Her menses is provocative. Peewee Bowser MD [address], [place], [address], [facility] 01/22/2020 11:02:35 02/03/2020 text/html This patient presents for follow-up after evaluation for dysmenorrhea. She had endometrial ablation about 3 months ago. Her bleeding is much improved, but she has pain that is significant on the 1st day of her. She rates about an 8. It is a cramping pain. It is confined to the mid pelvis and she rates it an 8/10. We agreed to perform a pelvic ultrasound. The pelvic ultrasound is consistent with the normal post ablation pelvic ultrasound with a small fibroid. We spent 15 minutes enhm-wv-cwri. I shared ultrasound images with her. We talked about medical management of her pain at the time of her menses. She will follow up as needed. She will manage the pain with NSAIDs. Peewee Bowser MD [address], [place], [address], [facility] 02/03/2020 12:27:27 OBGyn Episode Ob Episode Information Episode Created Date Number of Fetuses Patient Bloodtype Patient rh Status Prepregnancy Weight lbs Domestic Partner Domestic Partner Phone Father Name Veneer Jointer Offbearer Status 09/13/19 20 1 CLOSED Fetus Data First Name Last Name Admitted to NICU Weight (g) Sex Living Outcome Pediatric Complications Fetus ID Race Codes Race Delivery Type 3051 Vaginal Delivery Brock Calculation Initial Brock Date Initial Exam Date Initial Exam Provider Initial Ultrasound Date Last Menstrual Period Date Ultra Sound Weeks Gestation 0 Eighteen To Twenty Week Brock Update Ultra Sound Date Fundal Height At Umbil Quickening Date Ultra Sound Latest Weeks Gestation Final Brock Confirmed By Final Brock Confirmed Date Final Brock Date Ultra Sound Latest Days Gestation 0 0 Menstrual History Last Menstrual Date Menses Monthly On Bcp Conception Prior Menses Frequency Hcg Plus Date Menarche Onset Age Delivery Information Delivery Date Delivery Type Labor Anesthesia Weeks Gestation Incision Type Labor Labor Length Hrs Delivered By Post Complications Tubal Sterilization Discharge Date Comments 3 Ynes Discharge Information Feeding Method Contraceptive Method Maternal HG B and HCT Levels Ob Episode Information Episode Created Date Number of Fetuses Patient Bloodtype Patient rh Status Prepregnancy Weight lbs Domestic Partner Domestic Partner Phone Father Name Veneer Jointer Offbearer Status 09/13/19 20 1 CLOSED Fetus Data First Name Last Name Admitted to NICU Weight (g) Sex Living Outcome Pediatric Complications Fetus ID Race Codes Race Delivery Type 3052 Vaginal Delivery Brock Calculation Initial Brock Date Initial Exam Date Initial Exam Provider Initial Ultrasound Date Last Menstrual Period Date Ultra Sound Weeks Gestation 0 Eighteen To Twenty Week Brock Update Ultra Sound Date Fundal Height At Umbil Quickening Date Ultra Sound Latest Weeks Gestation Final Brock Confirmed By Final Brock Confirmed Date Final Brock Date Ultra Sound Latest Days Gestation 0 0 Menstrual History Last Menstrual Date Menses Monthly On Bcp Conception Prior Menses Frequency Hcg Plus Date Menarche Onset Age Delivery Information Delivery Date Delivery Type Labor Anesthesia Weeks Gestation Incision Type Labor Labor Length Hrs Delivered By Post Complications Tubal Sterilization Discharge Date Comments 7 Ron Discharge Information Feeding Method Contraceptive Method Maternal HG B and HCT Levels
--- OUTSIDE RECORDS SUMMARY | 2025-02-09 09:10 | XMS_ITS | Clinical Summary ---
Author Organization [facility] [address] Address [address] [place] [address] Phone Care Team Providers Care Economics Faculty Member Name Role Phone Kimberley Bullard MD Unavailable [...] (09/16/2020): Added automatically from request for surgery [id number] Pelvic and perineal pain 09/16/2020 Overview (09/16/2020): Added automatically from request for surgery [id number] 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 Assessment & Plan (04/05/2017 10:20 AM CIVIL ATTORNEY): Will repeat AVISE testing. Assessment & Plan [...] symptoms. Assessment & Plan (04/05/2017 10:19 AM CIVIL ATTORNEY): Patient disease activity is low. Her u/s is actually improved from her previous one. Will continue to observe this patient at this time. She is feeling much better after changing her diet. Will repeat AVISE testing, she is going to stop by the [facility] soon. Assessment & Plan (11/20/2016 10:19 AM [...] 08/03/2016 Assessment & Plan (04/05/2017 10:20 AM CIVIL ATTORNEY): Minimal complaints of dry eyes and dry [...] Preservative Free, Intramuscular 12/30/2020,12/13/2013 Influenza, Unspecified 12/30/2020 Sembraire SARS-CoV-2 Monovalent Vaccination (12+ Yrs) PURPLE 02/11/2021 Surgical History Surgery Date Site/Laterality Comments OTHER SURGICAL HISTORY 02/23/1992 - 02/21/1993 : OTHER SURGICAL HISTORY 02/22/2006 - 02/21/2007 : ABLATION 202 LAPAROSCOPIC TOTAL HYSTERECTOMY 10/23/2020 - 11/21/2020 with BS HYSTEROSCOPY 09/22/2020 - 10/22/2020 HYSTERECTOMY 02/23/2020 - 02/21/2021 Medical History Medical History Date Comments 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 Hx Other Medical 1992 ; Outc ome: [...] on file Legal Sex Female 11:54 PM CIVIL ATTORNEY Gender Identity Female 08/21/2020 8:43 PM CDT [...] Comments Blood Pressure 110/62 02/02/2022 3:49 PM CIVIL ATTORNEY Pulse 47 02/02/2022 3:49 PM CIVIL ATTORNEY Temperature 36.5 C (97.7 F) 07/23/2021 3:01 PM CDT Respiratory Rate 18 12/04/2020 9:00 AM CDT Oxygen Saturation 98% 02/02/2022 3:49 PM CIVIL ATTORNEY Inhaled Oxygen Concentration - - Weight 57.2 [...] 04/14/2021, 12/06/2020, 05/27/2018 Covid-19 Vaccine ( season) 2024 03/04/2021, 02/11/2021 Influenza Vaccine (#1) 2024 , 12/30/2020, 12/21/2017, Additional history exists Breast Cancer Screening-Mammogram 02/10/2025 02/11/2024, 08/20/2022, 01/09/2021, Additional history exists Pneumococcal vaccine <65 Aged Out No longer eligible based on patient's age to complete this topic Procedures Procedure Name Priority Date/Time Associated Diagnosis Comments SCREENING MAMMOGRAM BILATERAL W CAITLYN Schedule Routine, Read Routine (OP Routine) 02/11/2024 3:30 PM CIVIL ATTORNEY Screening mammogram, encounter for from Last 3 Months or Most Recently Relevant to Health Maintenance Results * Screening Mammogram Bilateral W Caitlyn (02/11/2024 3:30 PM CIVIL ATTORNEY) Anatomical Region Laterality Modality Breast Bilateral Mammography Impressions 02/11/2024 3:44 PM CIVIL ATTORNEY BI-RADS ATLAS category (overall): 1 - Negative There is no mammographic evidence of malignancy. A 1 year screening mammogram is recommended. The patient has been or will be contacted. We recommend annual screening mammography for women at average risk of breast cancer beginning at age 40, based on guidelines of the [employer] (ACR Practice Parameter for the Performance of Screening and Diagnostic Mammography) and [employer]. For women with and elevated risk of breast cancer, please refer to the ACR Practice Parameter for specific screening recommendations. The patient will be entered into a reminder system with a target due date of 1 year for her next screening exam. Narrative 02/11/2024 3:44 PM CIVIL ATTORNEY Screening Mammogram Bilateral W Caitlyn: 02/11/24 The [...] Most Recently Relevant to Health Maintenance Insurance [employer] ACCESS CHOICE ANTHEM ACCESS CHOICE ANTHEM ACCESS CHOICE ANTHEM ACCESS CHOICE Advance Directives For more information, please contact: [phone] * Full Code (Latest Code Status on File) Date Activated Date Inactivated Comments 12/02/2020 11:32 PM 12/04/2020 6:05 PM Care Teams Economics Faculty Member Relationship Specialty Start Date End Date Tobias Nam DNP PCP - General 12/25/23 [place] [id number] [facility] [address] [place] [address] Rheumatology 11/24/16
--- OUTSIDE RECORDS SUMMARY | 2025-02-09 09:10 | XMS_ITS | Clinical Summary ---
Author Organization [facility] Address [address] [place] [address] Care Team Providers Care Ballroom Dance Instructor Name Role Phone Leslie Ellis MD Primary Care Provider Source Comments [facility] Affiliates and Associated Physician Practices is amultiple site organization consisting of ambulatory clinics and hospital sitesin [place], [place], [place] and [place]. This disclosure is being madepursuant to the Care Everywhere program and may not contain all information available regarding this patient. Last updated 17.[facility] documistic Social History Tobacco Use Types Packs/Day Years Used Date Smoking Tobacco: Never Assessed Comments Unknown Sex and Gender Information Value Date Recorded Sex Assigned at Not on file Legal Sex Female 2:43 PM CDT Gender Identity Not on file Sexual Orientation Not on file Plan of Treatment Health Maintenance Due Date Last Done Comments COLOGUARD (AGES 45-75) - COL ON CA SCREENING 1977 COLON MONITORING 1977 COLONOSCOPY - COLON CA SCREENING 1977 CT COLONOGRAPHY - COLON CA SCREENING 1977 Colorectal Cancer Screening 1977 FIT - COLON CA SCREENING 1977 FLEX SIG - COLON CA SCREENING 1977 LIPID TESTING 1977 MAMMOGRAM 1977 HIV SCREENING 02/16/1992 HEPATITIS C SCREENING 02/11/1995 DTAP/TDAP/TD VACCINES (1 - Tdap) 02/16/1996 HEPATITIS B VACCINE (1 of 3 - 19+ 3-dose series) 02/16/1996 DEPRESSION SCREENING 02/23/2024 COVID-19 VACCINE (1 - 2024-2 6 season) 2024 INFLUENZA VACCINE (#1) 2024 ZOSTER VACCINE (1 of 2) 2027 HIB VACCINE Aged Out No longer eligi ble based on patient's age to complete this topic HPV VACCINE Aged Out No longer eligi ble based on patient's age to complete this topic MENINGOCOCCAL (Group B) VACC INE SHARED DECISION-MAKING Aged Out No longer eligibl e based on patient's age to complete this topic MENINGOCOCCAL GROUPS A/C/Y/W VACCINE Aged Out No longer eligible b ased on patient's age to complete this topic PNEUMOCOCCAL VACCINE Aged Out No long er eligible based on patient's age to complete this topic Insurance [facility] Care Teams Ballroom Dance Instructor Relationship Specialty Start Date End Date Leslie Ellis MD [address] [place] [id number] PCP - General Family Medicine 08/03/16
[2025-02-09 13:10] LABS: Cholesterol 192 mg/dL (0-200); HDL Direct 41 mg/dL; Triglycerides 107 mg/dL (<150)
[2025-02-09 13:45] LABS: Thyroid Stimulating Hormone 1.540 uIU/mL (0.465-4.680)
== END 2025-02-09 08:58 | disposition home or self-care (01) ==
PROVIDERS: PCP Student in an Organized Health Care Education/Training Program; Visit Provider Student in an Organized Health Care Education/Training Program
DX: Z13.220 Encounter for screening for lipoid disorders (principal); Z13.29 Encounter for screening for other suspected endocrine disorder
CPT/HCPCS: 36415; 80061; 84443